=== PATIENT | female | born 1965 | race Caucasian/White ===

== ENCOUNTER 2016-12-31 04:54 | Inpatient (IN) | payer OTHER ==
[~2016-12-31 04:54] MED LIST: ADVIL200 M1 PO; ALEVE220 MG PO; AMOXICILLIN875 MG PO; AUGMENTIN 875-11 TAB PO; CALCIUM CARBON500 M2 PO; CHEMO THERAPY; CLARITIN10 M4 PO; COD LIVER OIL1 CAP PO; COLACE100 MG PO; COMBIVENT INH14.7 G1 IH; FLAGYL500 MG PO; LEVAQUIN500 MG PO; LORTAB 5-500 T1 EAC1 PO; LOTRIMIN30 GM TP; MILK OF MA400 MG/5 M PO; MIRALAX119 GM PO; MOTRIN400 MG PO; MOTRIN800 MG PO; MUCINEX DM1 TAB.SR . PO; MULTI-VITAMIN1 EAC3 PO; MYLICON PO; NORCO 5/325 TAB1 TAB PO; NORCO 5/3251 TA1 PO; VITAMIN D-3 PO; ZITHROMAX250MG Z-PAK PO; [UNRECOGNIZED DRUG - OTHER] PO
[2016-12-31 05:36] LABS: BASO % 0.1 % (0-2); HCT-HEMATOCRIT 50.7 % (34.0-49.0); HGB-HEMOGLOBIN 17.3 gm/dl (12.0-15.5); IMMATURE GRANULOCYTES ABSOLUTE 0.04 tho/cmm (0-0.03); IMMATURE GRANULOCYTES PERCENT 0.3 % (0-0.3); LYMPH % 7.4 % (20-45); MCH (MEAN CORPUSCULAR HGB) 29.9 pg (28.0-32.0); MCHC MEAN CORPUSCULAR HGB CONC 34.1 % (32.0-36.0); MCV (MEAN CELL VOLUME) 87.7 fl (82.0-96.0); MEAN PLATELET VOLUME 9.6 cmc (9.4-12.4); MONOCYTE ABSOLUTE COUNT 0.4 tho/cmm (0.0-1.2); NEUTROPHIL ABSOLUTE COUNT 12.4 tho/cmm (1.6-8.0); NEUTROPHIL-AUTOMATED 12.4 tho/cmm (1.6-8.0); NEUTROPHILS % 89.2 % (40-80); PLATELET COUNT 278 tho/cmm (150-450); RED BLOOD COUNT 5.78 mil/cmm (4.00-5.20); RED CELL DISTRIBUTION WIDTH 13.9 % (12.4-16.4); WHITE BLOOD COUNT 13.9 tho/cmm (4.0-10.0)
[2016-12-31 05:59] LABS: ALBUMIN 4.4 g/dl (3.5-5.0); ALKALINE PHOSPHATASE 115 U/L (33-138); ALT/SGPT 37 U/L (12-78); ANION GAP 12 mmol/L (0-20); AST/SGOT 40 U/L (10-40); BILIRUBIN,TOTAL 1.6 mg/dl (0-1.5); BLOOD UREA NITROGEN 21 mg/dl (6-24); CALCIUM 10.3 mg/dl (8.5-10.5); CARBON DIOXIDE-VENOUS 34 mmol/L (22-32); CHLORIDE 96 mmol/l (96-110); CREATININE 1.23 mg/dl (0.50-1.10); GLUCOSE 168 mg/dL (70-110); LIPASE 822 U/L (73-393); POTASSIUM 3.8 mmol/L (3.7-5.1); SODIUM 138 mmol/L (135-145); eGFR VALUE FOR BLACK 58 mL/Min
[2016-12-31 07:34] LABS: URINE BILIRUBIN NEGATIVE (NEG); URINE BLOOD SMALL (NEG); URINE GLUCOSE (UA) NEGATIVE (NEG); URINE KETONE NEGATIVE (NEG); URINE LEUKOCYTE ESTERASE NEGATIVE (NEG); URINE NITRITE NEGATIVE (NEG); URINE PROTEIN NEGATIVE (NEG); URINE SPECIFIC GRAVITY 1.015 (1.003-1.030)
[2016-12-31 07:38] LABS: URINE APPEARANCE CLEAR; URINE COLOR YELLOW
[2016-12-31 07:47] LABS: URINE EPITHELIAL CELLS 0-3 /[HPF] (0-10); URINE WBC 0-2 /[HPF] (0-5)
--- NOTE | 2016-12-31 20:15 | NUR ---
VIRTUAL CARE NOTE: PT. IN BED STATES IS FEELING GOOD AND HER PAIN IS GOOD AT THIS TIME. STATES HAS BEEN WALKING AND IS PASSING FLATUS AND STOOLS. DENIES FURTHER QUESTIONS AT THIS TIME. REQUESTS FOR SOME LOTION. BOTTOM POUNDER CEMENT SHOES PAGED. INSTRUCTED TO CALL FOR FUTURE NEEDS. STATES VERBAL AGREEMENT.
[2017-01-01 04:45] LABS: BASO % 0.2 % (0-2); EOS % 2.4 % (0-7); EOSINOPHIL ABSOLUTE COUNT 0.1 tho/cmm (0.0-0.7); HCT-HEMATOCRIT 38.2 % (34.0-49.0); HGB-HEMOGLOBIN 12.4 gm/dl (12.0-15.5); IMMATURE GRANULOCYTES ABSOLUTE 0.01 tho/cmm (0-0.03); IMMATURE GRANULOCYTES PERCENT 0.2 % (0-0.3); LYMPH % 33.2 % (20-45); LYMPH ABSOLUTE COUNT 1.8 tho/cmm (0.8-4.5); MCHC MEAN CORPUSCULAR HGB CONC 32.5 % (32.0-36.0); MCV (MEAN CELL VOLUME) 89.5 fl (82.0-96.0); MEAN PLATELET VOLUME 9.7 cmc (9.4-12.4); MONO % 7.5 % (0-12); MONOCYTE ABSOLUTE COUNT 0.4 tho/cmm (0.0-1.2); NEUTROPHIL ABSOLUTE COUNT 3.1 tho/cmm (1.6-8.0); NEUTROPHIL-AUTOMATED 3.1 tho/cmm (1.6-8.0); NEUTROPHILS % 56.5 % (40-80); PLATELET COUNT 182 tho/cmm (150-450); RED BLOOD COUNT 4.27 mil/cmm (4.00-5.20); RED CELL DISTRIBUTION WIDTH 14.4 % (12.4-16.4)
[2017-01-01 05:03] LABS: ALBUMIN 2.6 g/dl (3.5-5.0); ALKALINE PHOSPHATASE 63 U/L (33-138); ALT/SGPT 24 U/L (12-78); AMYLASE 96 U/L (20-90); ANION GAP 10 mmol/L (0-20); AST/SGOT 24 U/L (10-40); BILIRUBIN,TOTAL 1.4 mg/dl (0-1.5); BLOOD UREA NITROGEN 13 mg/dl (6-24); CALCIUM 8.1 mg/dl (8.5-10.5); CARBON DIOXIDE-VENOUS 27 mmol/L (22-32); CHLORIDE 112 mmol/l (96-110); CREATININE 0.89 mg/dl (0.50-1.10); POTASSIUM 4.5 mmol/L (3.7-5.1); SODIUM 144 mmol/L (135-145); eGFR VALUE FOR BLACK 86 mL/Min
[2017-01-01 05:06] LABS: WHITE BLOOD COUNT 5.5 tho/cmm (4.0-10.0)
[2017-01-01 05:24] LABS: GLUCOSE 83 mg/dL (70-110); LIPASE 113 U/L (73-393)
== END 2017-01-01 14:40 | DRG 389 ==
LOC: EDMED 04:54 → EMR2 08:02 → 5WD 09:50
PROVIDERS: Emergency Medicine; Nurse Practitioner Acute Care; ADMIT Family Medicine
DX: K56.60 Unspecified intestinal obstruction (principal); N17.9 Acute kidney failure, unspecified; R00.1 Bradycardia, unspecified; Z85.048 Personal history of other malignant neoplasm of rectum, rectosigmoid junction, and anus
CPT/HCPCS: J2270; J2405; J7030; Q9967